=== PATIENT | female | born 1980 | race Caucasian/White ===

== ENCOUNTER 2017-03-31 09:06 | Emergency (ER) | payer BC, OTHER ==
[2017-03-31 11:01] VITALS: BP 118/64
--- NOTE | 2017-03-31 11:22 | UC ---
UC General HPI - HPI Summary HPI Summary: pt states became ill with a sore throat around the 8th which resolved after 1.5 days but now assoc with sinus congestion with pressure, ear pressure, cough and chest congestion. vomited once from the cough. occ sob but no cp or wheezing. + fever - History of Current Complaint Chief Complaint: UCGeneralIllness Stated Complaint: COUGH,HAUSER Time Seen by Provider: 03/31/17 11:10 Hx Obtained From: Patient Hx Last Menstrual Period: DEPO Onset/Duration: Gradual Onset Onset Severity: Moderate Current Severity: Moderate Pain Intensity: 6 Aggravating: nothing Alleviating: mucinex loosened the nasal congestion Associated Signs & Symptoms: Positive: Cough, Fever, Headache, SOB. Negative: Chest Pain, Diarrhea, Dysuria, Nausea, Wheezing - Allergy/Home Medications Allergies/Adverse Reactions: Allergies Allergy/AdvReac Type Severity Reaction Status Date / Time No Known Allergies Allergy Verified 03/31/17 10:52 Home Medications: Home Medications Phenylephrine/Dm/Acetaminop/GG [Mucinex Fast-Max Immb-Zfv-Nasu] 2 cap PO DAILY PRN 03/31/17 [History Confirmed 03/31/17] PMH/Surg Hx/FS Hx/Imm Hx Previously Healthy: Yes - Surgical History Surgical History: Yes Surgery Procedure, Year, and Place: left breast lump removed 11/28--benign - Family History Known Family History: Positive: Hypertension - maternal grandmother Negative: Diabetes - Social History Occupation: Employed Full-time Lives: With Family Alcohol Use: Occasionally Substance Use Type: None Smoking Status (MU): Current Every Day Smoker Amount Used/How Often: 1/2 - 1 pdd Length of Time of Smoking/Using Tobacco: 12 YRS - Immunization History Vaccination Up to Date: Yes Review of Systems Constitutional: Negative, Fever, Chills Skin: Negative Eyes: Negative ENT: Negative, Sore Throat, Ear Ache, Nasal Discharge, Sinus Congestion, Sinus Pain/Tenderness Respiratory: Shortness Of Breath, Cough Cardiovascular: Negative Gastrointestinal: Negative Genitourinary: Negative Motor: Negative Neurovascular: Negative Musculoskeletal: Negative Neurological: Negative Psychological: Negative Is Patient Immunocompromised?: No All Other Systems Reviewed And Are Negative: Yes Physical Exam Triage Information Reviewed: Yes Appearance: Well-Appearing Vital Signs: Initial Vital Signs Temp 98.4 F 03/31/17 10:55 Pulse 88 03/31/17 10:55 Resp 26 03/31/17 10:55 BP 118/64 03/31/17 10:55 Pulse Ox 100 03/31/17 10:55 Vital Signs Reviewed: Yes Eyes: Positive: Conjunctiva Clear ENT: Positive: Hearing grossly normal, Pharynx normal, Nasal congestion, TMs normal, Sinus tenderness, Uvula midline. Negative: Nasal drainage, Trismus, Muffled voice, Hoarse voice Neck: Positive: Supple, Nontender, No Lymphadenopathy Respiratory: Positive: Lungs clear, Decreased breath sounds Cardiovascular: Positive: RRR, No Murmur Abdomen Description: Positive: Nontender, No Organomegaly, Soft Bowel Sounds: Positive: Present Musculoskeletal: Positive: No Edema Neurological: Positive: Alert Psychological: Positive: Age Appropriate Behavior Skin Exam: Normal Diagnostics - Laboratory Diagnostic Studies Completed/Ordered: rapid flu=neg Course/Dx - Course Course Of Treatment: rapid flu was negative. exam c/w sinusitis and bronchitis thus will tx augmentin and albuterol mdi. - Differential Dx - Multi-Symptom Provider Diagnoses: Sinusitis. Bronchitis Discharge - Discharge Plan Condition: Stable Disposition: HOME Prescriptions: Albuterol HFA INHALER* [Ventolin HFA Inhaler*] 2 puff INH Q6H 14 Days #1 mdi Amoxicillin/Clavulanate TAB* [Augmentin TAB 875*] 875 mg PO BID 10 Days #20 tab Patient Education Materials: Sinusitis (ED), Acute Bronchitis (ED) Referrals: Lee Ramno [Primary Care Provider] - 7 Days
== END 2017-03-31 11:49 | disposition home or self-care (01) ==
LOC: UCCORT 09:06
DX: J32.9 Chronic sinusitis, unspecified (principal); J40 Bronchitis, not specified as acute or chronic; F17.210 Nicotine dependence, cigarettes, uncomplicated
CPT/HCPCS: 87502; 99212; G0463

== ENCOUNTER 2017-04-10 15:27 | Emergency (ER) | payer OTHER ==
[2017-04-10 15:45] VITALS: BP 102/56
--- NOTE | 2017-04-10 16:04 | UC ---
Abdominal Pain Female HPI - HPI Summary HPI Summary: Patient presents with 3 days of increased pelvic pressure. cant get comfortable in any postition. afebrile denies dysuria. - History of Current Complaint Chief Complaint: UCGU Stated Complaint: POSSIBLE URINARY Time Seen by Provider: 04/10/17 15:34 Hx Obtained From: Patient Hx Last Menstrual Period: unknown, depo ?: No Onset/Duration: Sudden Onset, Lasting Days Timing: Constant Severity Initially: Mild Severity Currently: Severe Pain Intensity: 7 Pain Scale Used: 0-10 Numeric Location: Diffuse - lower abdomen Radiates: Yes Radiates to: Back Character: Aching, Cramping, Dull Associated Signs and Symptoms: Positive: Back Pain, Urinary Symptoms Allergies/Adverse Reactions: Allergies Allergy/AdvReac Type Severity Reaction Status Date / Time No Known Allergies Allergy Verified 04/10/17 15:41 Home Medications: Home Medications Acetaminophen TAB* [Tylenol TAB*] 650 mg PO Q4H PRN 04/10/17 [History Confirmed 04/10/17] medroxyPROGESTERone ACETATE* [DEPO-Provera] 150 mg IM Q3M 04/10/17 [History Confirmed 04/10/17] PMH/Surg Hx/FS Hx/Imm Hx Previously Healthy: Yes - Surgical History Surgical History: Yes Surgery Procedure, Year, and Place: left breast lump removed 11/28--benign - Family History Known Family History: Positive: Hypertension - maternal grandmother Negative: Diabetes - Social History Alcohol Use: Occasionally Substance Use Type: None Smoking Status (MU): Current Every Day Smoker Amount Used/How Often: 1/2 - 1 pdd Length of Time of Smoking/Using Tobacco: 12 YRS - Immunization History Vaccination Up to Date: Yes Review of Systems Constitutional: Negative Skin: Negative Eyes: Negative ENT: Negative Respiratory: Negative Cardiovascular: Negative Gastrointestinal: Abdominal Pain Genitourinary: Negative Motor: Negative Neurovascular: Negative Musculoskeletal: Negative Neurological: Negative Psychological: Negative Is Patient Immunocompromised?: No All Other Systems Reviewed And Are Negative: Yes Physical Exam Triage Information Reviewed: Yes Appearance: Well-Nourished, Ill-Appearing, Pain Distress Vital Signs: Initial Vital Signs Temp 98.6 F 04/10/17 15:36 Pulse 101 04/10/17 15:36 Resp 18 04/10/17 15:36 BP 102/56 02/26/18 15:36 Pulse Ox 100 04/10/17 15:36 Vital Signs Reviewed: Yes Eye Exam: Normal ENT Exam: Normal Dental Exam: Normal Neck exam: Normal Respiratory Exam: Normal Respiratory: Positive: Chest non-tender, Lungs clear, Normal breath sounds Cardiovascular Exam: Normal Cardiovascular: Positive: No Murmur, Pulses Normal, Tachycardia Abdominal Exam: Normal Abdomen Description: Positive: Nontender, No Organomegaly, Soft, CVA Tenderness (R) - pos, CVA Tenderness (L) - pos, Guarding, Peritoneal Signs - rebound tenderness Bowel Sounds: Positive: Hyperactive Musculoskeletal Exam: Normal Musculoskeletal: Positive: Strength Intact, ROM Intact, No Edema Neurological Exam: Normal Neurological: Positive: Alert, Muscle Tone Normal Psychological Exam: Normal Skin Exam: Normal Abd Pain Female Course/Dx - Course Course Of Treatment: hx obtained, exam performed ,meds reviewed, ua positive for blood, rebound tenderness, d/c and sent to [facility] er for further workup. - Differential Dx/Diagnosis Differential Diagnosis: Appendicitis, Bowel Obstruction, Constipation, Diverticulitis, Urinary Tract Infection Provider Diagnoses: abdominal pain - Physician Notification/Consults Discussed Care of Patient With: ervin MCCARTY Instructed by Provider To: MD Will See In ED Discharge - Discharge Plan Condition: Stable Disposition: TRANS HIGHER LV OF CARE FAC Patient Education Materials: Acute Abdominal Pain (ED) Referrals: Elena STEPHENS,Lee Lazar [Primary Care Provider] - Additional Instructions: 1. your symtpoms are indicative of appendicitis, please follow up in the ER immediately.
== END 2017-04-10 15:56 | disposition short-term general hospital (02) ==
LOC: UCCORT 15:27
DX: R10.9 Unspecified abdominal pain (principal); F17.210 Nicotine dependence, cigarettes, uncomplicated
CPT/HCPCS: 81003; 99212; G0463

== ENCOUNTER 2018-11-24 14:02 | Emergency (ER) | payer BC, OTHER ==
[2018-11-24 14:26] VITALS: BP 132/65
--- NOTE | 2018-11-24 14:33 | UC ---
Abdominal Pain Female HPI - HPI Summary HPI Summary: Patient is a 38-year-old female presenting with lower abdominal aching and cramping 4 days and has gradually worsened. Patient has a history of diverticulitis and she has flares a couple times years. The last time was 4 months ago. Notes nausea. Denies radiation of pain. Denies vomiting, diarrhea , and constipation. She is eating and drinking normally. Denies blood in the stool. Denies urinary symptoms. Denies any possibility of . - History of Current Complaint Chief Complaint: UCAbdominalPain Stated Complaint: ABDOMINAL PAIN Hx Obtained From: Patient Hx Last Menstrual Period: Depo-Provera Onset/Duration: Gradual Onset, Lasting Days Severity Currently: Severe Pain Intensity: 7 Pain Scale Used: 0-10 Numeric Allergies/Adverse Reactions: Allergies Allergy/AdvReac Type Severity Reaction Status Date / Time No Known Allergies Allergy Verified 11/24/18 14:20 Home Medications: Home Medications Acetaminophen [Acetaminophen Extra Strength] 500 mg PO Q6H PRN 11/24/18 [ History Confirmed 11/24/18] L.acidoph,Paracasei, B.lactis [Probiotic] 1 - 2 each PO DAILY 11/24/18 [History Confirmed 11/24/18] PMH/Surg Hx/FS Hx/Imm Hx GI/ History: Diverticulitis - Surgical History Surgical History: Yes Surgery Procedure, Year, and Place: Benign Left Breast Lump, 2016; Ear Tubes as a child - Family History Known Family History: Positive: Hypertension - maternal grandmother Negative: Diabetes - Social History Alcohol Use: Occasionally Substance Use Type: None Smoking Status (MU): Heavy Every Day Tobacco Smoker Type: Cigarettes Amount Used/How Often: 1/2 - 1 PPD Length of Time of Smoking/Using Tobacco: Since Age 22 Household Exposure Type: Cigarettes - Immunization History Vaccination Up to Date: Yes Review of Systems All Other Systems Reviewed And Are Negative: Yes Constitutional: Positive: Negative. Negative: Fever, Chills ENT: Positive: Negative Respiratory: Positive: Negative. Negative: Shortness Of Breath, Cough Cardiovascular: Positive: Negative. Negative: Palpitations, Chest Pain Gastrointestinal: Positive: Abdominal Pain, Nausea. Negative: Vomiting, Diarrhea Genitourinary: Positive: Negative Musculoskeletal: Positive: Negative Neurological: Positive: Negative Physical Exam Triage Information Reviewed: Yes Appearance: Well-Appearing, Well-Nourished, Pain Distress Vital Signs: Initial Vital Signs Temp 98.7 F 11/24/18 14:17 Pulse 107 11/24/18 14:17 Resp 16 11/24/18 14:17 BP 132/65 11/24/18 14:17 Pulse Ox 100 11/24/18 14:17 Vital Signs Reviewed: Yes Eyes: Positive: Conjunctiva Clear ENT: Positive: Hearing grossly normal Neck: Positive: Supple Respiratory Exam: Normal Respiratory: Positive: Lungs clear, Normal breath sounds, No respiratory distress, No accessory muscle use Cardiovascular Exam: Normal Cardiovascular: Positive: RRR, Tachycardia Abdomen Description: Positive: Soft, Guarding, Other: - negative psoas and rovsings. Negative: Nontender - tenderness to palpation of LLQ, CVA Tenderness (R), CVA Tenderness (L), Distended, McBurney's Point Tenderness Bowel Sounds: Positive: Present, Hyperactive Neurological: Positive: Alert Psychological: Positive: Age Appropriate Behavior Abd Pain Female Course/Dx - Course Course Of Treatment: Instructed the patient to take Bactrim and metronidazole as directed for treatment of her diverticulitis. Educated the patient on strict alcohol avoidance while taking metronidazole. The patient additionally continue taking probiotics and add Metamucil for symptomatic relief and to help prevent another flare. Educated her on the importance of fiber in her diet as well. Instructed her to go to the emergency room if she experiences increasing abdominal pain, nausea, vomiting, fever. Patient voiced understanding and agreed to treatment plan. - Differential Dx/Diagnosis Provider Diagnosis: Diverticulitis Discharge ED - Sign-Out/Discharge Documenting (check all that apply): Patient Departure All imaging exams completed and their final reports reviewed: No Studies - Discharge Plan Condition: Stable Disposition: HOME Prescriptions: metroNIDAZOLE TAB* [Flagyl 250 mg TAB*] 500 mg PO TID #30 tab Sulfamethox/Trimethoprim DS* [Bactrim DS 800/160 TAB*] 1 tab PO BID #20 tab Patient Education Materials: Diverticulitis (ED) Referrals: Lee Parker PA [Primary Care Provider] - If Needed Additional Instructions: As discussed take Bactrim and metronidazole as prescribed for treatment of her diverticulitis. You may continue to take Tylenol and ibuprofen as directed for pain relief. You may start taking a teaspoon of Metamucil every day to help relieve symptoms. Do not drink or consume any alcohol or any form while taking your antibiotics. Doing so can cause extreme illness. Go to the emergency room if you experience worsening symptoms, including fever, nausea, vomiting, and increasing abdominal pain. - Billing Disposition and Condition Condition: STABLE Disposition: Home - Attestation Statements Provider Attestation: I was available for consult. This patient was seen by the THIERRY. The patient was not presented to, seen by, or examined by me. -Bertha
[2018-11-24] MEDS ORDERED: Ibuprofen TAB* 600 MG PO ONE (14:52)
== END 2018-11-24 15:06 | disposition home or self-care (01) ==
LOC: UCCORT 14:02
DX: K57.92 Diverticulitis of intestine, part unspecified, without perforation or abscess without bleeding (principal); F17.210 Nicotine dependence, cigarettes, uncomplicated
CPT/HCPCS: 99212; A9270-GY; G0463